=== PATIENT | male | born 1980 | race Caucasian/White ===

== ENCOUNTER 2019-04-20 03:46 | Emergency (ER) | payer MEDICAID ==
[~2019-04-20] VITALS: Ht 175.3 cm; Wt 78.5 kg
[2019-04-20 03:48] VITALS: BP 124/85
[2019-04-20] MEDS ORDERED: HYDROcodone/APAP 5/325 TABLET ONE (04:20)
[2019-04-20] MEDS ORDERED: HYDROcodone/APAP 5/325 TABLET PO ONE (04:30)
== END 2019-04-20 04:28 | disposition home or self-care (01) ==
LOC: ED 04:15
DX: K04.7 Periapical abscess without sinus (principal); K02.9 Dental caries, unspecified
CPT/HCPCS: 99283